=== PATIENT | male | born 1945 | race Caucasian/White ===

== ENCOUNTER 2019-08-13 06:00 | Outpatient (RCR) | payer MEDICARE, OTHER, SELFPAY | END 2019-08-28 00:01 | LOC: TR3 06:00 | PROVIDERS: Family Provider Internal Medicine; Visit Provider Psychiatry & Neurology Neurology | DX: G20 Parkinson's disease (principal) | CPT/HCPCS: 92507 ×4; 92523; 92526 ×2; 97110 ×4; 97161; 97530 ==

== ENCOUNTER 2019-08-29 06:00 | Outpatient (RCR) | payer MEDICARE, OTHER, SELFPAY | END 2019-09-28 23:59 | disposition home or self-care (01) | LOC: TR3 06:00 | PROVIDERS: Family Provider Internal Medicine; PCP Internal Medicine; Visit Provider Psychiatry & Neurology Neurology | DX: G20 Parkinson's disease (principal); G90.09 Other idiopathic peripheral autonomic neuropathy; Z91.81 History of falling | CPT/HCPCS: 92507; 97110; 97112; 97164; 97166; 97530 ==

== ENCOUNTER 2019-09-07 11:22 | Outpatient (CLI) | payer MEDICARE, OTHER, SELFPAY ==
--- NOTE | 2019-09-07 12:17 | FL_ITS ---
WS: [id number] Modified barium swallow, 09/07/2019 Clinical Data: Other dysphagia Comparison: None. Fluoroscopy time: 1.6 minutes. Findings: Patient had good propulsion of thin and thick liquids and pudding from the oral cavity into the hypop harynx and beyond. There is minimal vallecular and piriform sinus pooling which did clear on multiple swallows. There is smooth transition of bolus into the esophagus. The barium tablet passed into the esophagus with no hesitation and there is no delay within the esophagus. There is no aspiration or pe netration into the trachea. FL/FL barium swallow modifd [id number] Impression: 1. Normal propulsion of bolus into the hypopharynx and esophagus. 2. Minimal pooling of material into the piriform sinus and vallecula. 3. Negative for aspiration or penetration into the trachea.
== END 2019-09-07 11:23 | disposition home or self-care (01) ==
PROVIDERS: Family Provider Internal Medicine; PCP Internal Medicine; Visit Provider Psychiatry & Neurology Neurology
DX: R13.19 Other dysphagia (principal)
CPT/HCPCS: 74230; 92611

== ENCOUNTER 2019-09-29 06:00 | Outpatient (RCR) | payer MEDICARE, OTHER, SELFPAY | END 2019-10-27 23:59 | disposition home or self-care (01) | LOC: TR3 06:00 | PROVIDERS: Family Provider Internal Medicine; PCP Internal Medicine; Visit Provider Psychiatry & Neurology Neurology | DX: G20 Parkinson's disease (principal) | CPT/HCPCS: 92507; 97110; 97535 ==

== ENCOUNTER 2019-10-28 06:00 | Outpatient (RCR) | payer MEDICARE, OTHER, SELFPAY | END 2019-11-27 23:59 | disposition home or self-care (01) | LOC: TR3 06:00 | PROVIDERS: Family Provider Internal Medicine; PCP Internal Medicine; Visit Provider Psychiatry & Neurology Neurology | DX: G20 Parkinson's disease (principal) | CPT/HCPCS: 92507; 97110; 97112; 97164; 97530 ==

== ENCOUNTER → 2020-04-29 10:32 | Outpatient (BNVA) | payer MEDICARE, OTHER, SELFPAY | PROVIDERS: Family Provider Internal Medicine; PCP Internal Medicine; Visit Provider Internal Medicine | DX: E11.9 Type 2 diabetes mellitus without complications (principal); R60.0 Localized edema; K75.81 Nonalcoholic steatohepatitis (NASH); I10 Essential (primary) hypertension | CPT/HCPCS: 80053; 80061; 83036; 84443; 85025 ==

== ENCOUNTER 2020-05-15 16:07 | Outpatient (CLI) | payer MEDICARE, OTHER, SELFPAY ==
--- NOTE | 2020-05-15 16:12 | USCV_ITS ---
Brian Ruiz Age: 74 Gender: M : 1945 Exam Date: 05/15/2020 16:29 Ordering Phys: Kevin Rodríguez MD Technologist: Destiney Espinoza Exam Location: [facility] [place] Indication: Edema of lower extremity BP: 134 / 52 HR: 73 Rhythm: Sinus Technical Quality: Adequate MEASUREMENTS (Male / Female) Normal Values 2D ECHO LV Diastolic Diameter PLAX 4.7 cm 4.2 - 5.9 / 3.9 - 5.3 cm LV Systolic Diameter PLAX 3.4 cm LV Chamber Size 3.2 cm IVS Diastolic Thickness 1.3 cm 0.6 - 1.0 / 0.6 - 0.9 cm IVS Systolic Thickness 1.4 cm LVPW Diastolic Thickness 2.7 cm 0.6 - 1.0 / 0.6 - 0.9 cm LVPW Systolic Thickness 2.1 cm RV Chamber Size 3.3 cm LVOT Diameter 2.0 cm LV Ejection Fraction 2D Teich 52.1 % LV Ejection Fraction MOD 2C 75.7 % LV Ejection Fraction 2C AL 75.2 % LA Diameter 5.0 cm LA Width 4.4 cm LA Height 5.4 cm RA Width 2.9 cm RA Height 4.7 cm Aorta at Sinotubular Diameter 2.7 cm M-MODE LV Diastolic Diameter MM 6.5 cm 4.2 - 5.9 / 3.9 - 5.3 cm LV Systolic Diameter MM 4.0 cm LV Ejection Fraction MM Teich 67.9 % IVS Diastolic Thickness MM 0.9 cm 0.6 - 1.0 / 0.6 - 0.9 cm IVS Systolic Thickness MM 1.8 cm LVPW Diastolic Thickness MM 1.3 cm 0.6 - 1.0 / 0.6 - 0.9 cm LVPW Systolic Thickness MM 2.0 cm Aortic Annulus Diameter 4.2 cm LA Ao Ratio MM 1.2 MV E Point Septal Separation 0.9 cm DOPPLER AV Peak Velocity 134.0 cm/s LVOT Peak Velocity 116.0 cm/s AV Area Cont Eq vti 3.2 cm squared AV Area Cont Eq pk 2.9 cm squared MV Area PHT 3.4 cm squared Mitral E to A Ratio 0.8 MV E' Velocity 11.0 cm/s Mitral E to MV E' Ratio 7.5 Mitral E to LV E' Lateral Ratio 6.4 Mitral E to LV E' Septal Ratio 9.3 TR Peak Velocity 277.0 cm/s TR Peak Gradient 30.8 mmHg TV Peak E Velocity 63.0 cm/s Right Atrial Pressure 3.0 mmHg Pulmonary Artery Systolic Pressu 33.7 mmHg PV Peak Velocity 108.0 cm/s RV Acceleration Time 0.2 s RV Ejection Time 0.4 s RV AcT/ET 0.4 FINDINGS Left Ventricle Normal left ventricular size, systolic function with no diagnostic regional wall motion abnormalities. Mildly increased left ventricular wall thickness. Left ventricular ejection fraction is estimated at 70 -75 %. Normal diastolic function. Right Ventricle Normal right ventricular size and systolic function, RVSP 33.7 mmHg (assuming right atrial pressure of 3 mmHg). Right Atrium Normal right atrial size. Left Atrium Upper normal left atrial size. Mitral Valve Mildly thickened mitral valve. No mitral valve stenosis. No significant mitral valve regurgitation. Aortic Valve Aortic valve not well visualized. Thickened aortic valve. No aortic valve stenosis. No aortic valve regurgitation. Tricuspid Valve Structurally normal tricuspid valve. Trace to mild tricuspid valve regurgitation. Pulmonic Valve Pulmonic valve not well visualized. No pulmonary valve stenosis. Trace pulmonary valve regurgitation. Pericardium No pericardial effusion. Inferior vena cava not well visualized Aorta Normal-sized aortic root. CONCLUSIONS 1. Normal left ventricular size and systolic function with no diagnostic regional wall motion abnormalities. Left ventricular ejection fraction is estimated at 70 -75 %. Normal diastolic function. 2. Trace to mild tricuspid valve regurgitation. 3. Pulmonary artery pressure estimated at 34 mmHg. 4. No prior similar studies to compare. Светлана Mittal MD (Electronically Signed) Final Date: 19 May 2020 12:42 S
== END 2020-05-15 16:08 | disposition home or self-care (01) ==
LOC: RAD 16:11
PROVIDERS: PCP Internal Medicine; Visit Provider Internal Medicine
DX: R60.0 Localized edema (principal); I07.1 Rheumatic tricuspid insufficiency
CPT/HCPCS: 93306

== ENCOUNTER 2021-02-17 06:00 | Outpatient (RCR) | payer MEDICARE, OTHER, SELFPAY | END 2021-02-25 23:59 | disposition home or self-care (01) | LOC: TST 06:00 | PROVIDERS: PCP Internal Medicine; Referring Provider Psychiatry & Neurology Neurology; Visit Provider Psychiatry & Neurology Neurology | DX: G20 Parkinson's disease (principal) | CPT/HCPCS: 92523 ==

== ENCOUNTER 2021-02-26 06:00 | Outpatient (RCR) | payer MEDICARE, OTHER, SELFPAY | END 2021-03-28 23:59 | disposition home or self-care (01) | LOC: TST 06:00 | PROVIDERS: PCP Internal Medicine; Referring Provider Psychiatry & Neurology Neurology; Visit Provider Psychiatry & Neurology Neurology | DX: G20 Parkinson's disease (principal) | CPT/HCPCS: 92507 ==

== ENCOUNTER 2021-02-27 13:11 | Outpatient (RCR) | payer MEDICARE, OTHER, SELFPAY | END 2021-03-28 23:59 | disposition home or self-care (01) | LOC: SPT 13:11 | PROVIDERS: PCP Internal Medicine; Referring Provider Psychiatry & Neurology Neurology; Visit Provider Psychiatry & Neurology Neurology | DX: G20 Parkinson's disease (principal) | CPT/HCPCS: 97110; 97162; 97164 ==

== ENCOUNTER 2021-03-29 06:00 | Outpatient (RCR) | payer MEDICARE, OTHER, SELFPAY | END 2021-04-28 23:59 | disposition home or self-care (01) | LOC: TST 06:00 | PROVIDERS: PCP Internal Medicine; Referring Provider Psychiatry & Neurology Neurology; Visit Provider Psychiatry & Neurology Neurology | DX: G20 Parkinson's disease (principal) | CPT/HCPCS: 92507; 92523 ==

== ENCOUNTER 2021-03-29 06:00 | Outpatient (RCR) | payer MEDICARE, OTHER, SELFPAY | END 2021-04-28 23:59 | disposition home or self-care (01) | LOC: SPT 06:00 | PROVIDERS: PCP Internal Medicine; Referring Provider Psychiatry & Neurology Neurology; Visit Provider Psychiatry & Neurology Neurology | DX: G20 Parkinson's disease (principal) | CPT/HCPCS: 97110 ==

== ENCOUNTER 2021-04-29 06:00 | Outpatient (RCR) | payer MEDICARE, OTHER, SELFPAY | END 2021-05-28 23:59 | disposition home or self-care (01) | LOC: TST 06:00 | PROVIDERS: PCP Internal Medicine; Referring Provider Psychiatry & Neurology Neurology; Visit Provider Psychiatry & Neurology Neurology | DX: G20 Parkinson's disease (principal) | CPT/HCPCS: 92507 ==

== ENCOUNTER 2021-05-08 06:00 | Outpatient (RCR) | payer MEDICARE, OTHER, SELFPAY | END 2021-05-28 23:59 | disposition home or self-care (01) | LOC: TPT 06:00 | PROVIDERS: PCP Internal Medicine; Referring Provider Internal Medicine; Visit Provider Internal Medicine | DX: G20 Parkinson's disease (principal) | CPT/HCPCS: 97110; 97162 ==

== ENCOUNTER 2021-05-29 06:00 | Outpatient (RCR) | payer MEDICARE, OTHER, SELFPAY | END 2021-06-28 23:59 | disposition home or self-care (01) | LOC: TPT 06:00 | PROVIDERS: PCP Internal Medicine; Referring Provider Internal Medicine; Visit Provider Internal Medicine | DX: G20 Parkinson's disease (principal) | CPT/HCPCS: 97110; 97164 ==

== ENCOUNTER 2021-07-02 06:00 | Outpatient (RCR) | payer MEDICARE, OTHER, SELFPAY | END 2021-07-07 23:59 | disposition home or self-care (01) | LOC: TPT 06:00 | PROVIDERS: PCP Internal Medicine; Referring Provider Internal Medicine; Visit Provider Internal Medicine | DX: G20 Parkinson's disease (principal) | CPT/HCPCS: 97110 ==